=== PATIENT | female | born 1980 | race Caucasian/White ===

== ENCOUNTER → 2019-10-17 | Emergency (ER) | payer OTHER, BC ==
--- NOTE | 2019-10-17 17:41 | RAD ---
RIGHT SHOULDER THREE VIEWS: 10/17/19 No fracture, dislocation, or AC joint widening was seen. No periarticular calcifications are seen. IMPRESSION: No acute bony findings. POS: HOME
== END ==
LOC: BURERS 14:48
DX: S46.811A Strain of other muscles, fascia and tendons at shoulder and upper arm level, right arm, initial encounter (principal); J45.909 Unspecified asthma, uncomplicated; X50.1XXA Overexertion from prolonged static or awkward postures, initial encounter